=== PATIENT | female | born 1940 | race African-American/Black ===

== ENCOUNTER 2025-04-06 06:42 | Emergency (ER) | payer MEDICARE, MEDICAID, SELFPAY ==
--- NOTE | ~2025-04-06 | XR_ITS ---
EXAMINATION: XR chest 1V portable DATE: 04/06/2025 08:18 INDICATION: Altered level of consciousness TECHNIQUE: frontal view of the chest was obtained. COMPARISON: None FINDINGS: The lungs are clear with no focal airspace opacities, pulmonary edema, pleural effusion or pneumothor ax. The cardiomediastinal silhouette is normal. IMPRESSION: 1. No acute cardiopulmonary disease. Reviewed, dictated and finalized at location A.
[2025-04-06 06:42] VITALS: BP 132/79; PULSE 70; RESP 18; TEMP 36.7; O2SAT 100
[2025-04-06 07:01] VITALS: BP 130/85; PULSE 73; RESP 17; O2SAT 100
--- NOTE | 2025-04-06 07:22 | ED.GENADULT ---
HPI - General Adult General Chief complaint: Unspecified Stated complaint: aggressive with residential staff Time Seen by Provider: 04/06/25 07:06 History of Present Illness HPI narrative: Pt was apparently aggressive with residential staff and was wondering into other patient's rooms. Pt has dementia but is normally not having these behaviors so staff concerned about having UTI. Pt has no complaints. Related Data Home Medications ?Medication ?Instructions ?Recorded ?Confirmed ?Last Taken ?Type No Home Medications 08/05/24 09/30/24 Unknown History Allergies Allergy/AdvReac Type Severity Reaction Status Date / Time No Known Allergies Allergy Verified 09/30/24 20:49 Review of Systems Review of Systems: All systems reviewed & are unremarkable except as noted in HPI and below PMFSH Social History Social History Smoking status: Never smoker Exam Const: General: cooperative, healthy appearing, comfortable and no acute distress Nutritional Appearance: average body habitus Orientation/consciousness: oriented to person Limitations: altered mental status HENMT: Head: normal to inspection Mouth: Yes Normal oral and palatal mucosa present Throat: posterior oropharynx normal Neck: Neck: no lymphadenopathy Resp: Effort & Inspection: normal respiratory effort and able to speak in complete sentences Auscultation: clear to auscultation bilaterally Cardio: Rate: regular rate Rhythm: regular rhythm GI: Inspection: normal to inspection GI Palp: Yes abdominal tenderness Skin: General skin exam: normal color and no rashes or lesions noted Neuro: General: oriented to person Cranial nerves: Yes Bilaterally intact EOM present and Yes Nystagmus not present Speech: normal speech Motor exam (neuro): 5/5 motor strength present throughout Extrem: General: normal to inspection, full ROM and no clubbing, cyanosis or edema Psych: Speech and movement: Normal speech and movement present Affect: normal affect Attitude: cooperative Course Vital Signs Vital signs: Vital Signs Temperature 98.1 F 04/06/25 06:42 Pulse Rate 70 04/06/25 06:42 Respiratory Rate 18 04/06/25 06:42 Blood Pressure 132/79 04/06/25 06:42 Pulse Oximetry 100 04/06/25 06:42 Oxygen Delivery Room Air 04/06/25 06:42 Temperature 98.1 F 04/06/25 06:42 Pulse Rate 73 04/06/25 07:01 Respiratory Rate 17 04/06/25 07:01 Blood Pressure 130/85 04/06/25 07:01 Pulse Oximetry 100 04/06/25 07:01 Oxygen Delivery Room Air 04/06/25 06:42 Medical Decision Making MDM Narrative Medical decision making narrative: Pt here after being combative at local NH. Pt has hx of dementia but normally not agressive. will check labs and ua to rule out pneumonia or uti. Vital Signs Vital Signs: Vital Signs Temperature 98.1 F 04/06/25 06:42 Pulse Rate 70 04/06/25 06:42 Respiratory Rate 18 04/06/25 06:42 Blood Pressure 132/79 04/06/25 06:42 Pulse Oximetry 100 04/06/25 06:42 Oxygen Delivery Room Air 04/06/25 06:42 Temperature 98.1 F 04/06/25 06:42 Pulse Rate 73 04/06/25 07:01 Respiratory Rate 17 04/06/25 07:01 Blood Pressure 130/85 04/06/25 07:01 Pulse Oximetry 100 04/06/25 07:01 Oxygen Delivery Room Air 04/06/25 06:42 Lab Data 04/06/25 07:28 04/06/25 07:28 Labs: Lab Results 04/06/25 Range/Units 07:28 WBC 4.1 L (4.5-10.0) K/mm3 RBC 4.34 (4.2-5.4) M/mm3 Hgb 12.2 (12.0-15.0) g/dL Hct 40.3 (37.0-47.0) % MCV 92.9 (80-100) fl MCH 28.1 (26-34) pg MCHC 30.3 L (32-36) g/dl RDW 13.9 (11.5-14.5) % Plt Count 205 (150-375) k/mm3 MPV 10.7 H (7.4-10.4) fl Immature Gran % (Auto) 0.2 (0-0.5) % Neut % (Auto) 40.9 L (45.5-73.1) % Lymph % (Auto) 43.2 (18.3-44.2) % [place] % (Auto) 10.4 H (2.6-8.5) % Eos % (Auto) 4.3 (0-4.4) % Baso % (Auto) 1.0 (0.2-1.2) % Lymph # (Auto) 1.79 (0.9-3.2) K/mm3 [place] # (Auto) 0.4 (0.1-0.6) K/mm3 Eos # (Auto) 0.2 (0-0.3) K/mm3 Baso # (Auto) 0.0 (0.0-0.1) K/mm3 Abs Immat Gran (auto) 0.01 (0.00-0.031) K/mm3 Absolute Neuts (auto) 1.7 (1.3-6.7) K/mm3 Absolute Nucleated RBC 0.000 (0.0-0.012) K/mm3 Nucleated RBC % 0.0 (0.0-0.2) % Sodium 139 (137-145) mmol/L Potassium 3.1 L (3.4-5.0) mmol/L Chloride 99 (98-107) mmol/L Carbon Dioxide 34 H (22-30) mmol/L Anion Gap 6 (4-12) mmol/L BUN 35 H (7-17) mg/dL Creatinine 1.21 H (0.7-1.0) mg/dL Estim Creat Clear Calc Not Reportable Estimated GFR 42 L (59 - ) Glucose 94 (65-110) mg/dL Calcium 10.5 H (8.4-10.2) mg/dL Total Bilirubin 0.6 (0.2-1.3) mg/dL AST 29 (14-36) U/L ALT 14 (6-35) U/L Alkaline Phosphatase 54 (38-126) U/L Total Protein 7.2 (6.3-8.2) g/dL Albumin 4.4 (3.5-5.1) g/dL Urine Color Yellow (Yellow) Urine Appearance Clear (Clear) Urine pH 6.0 (5.0-9.0) Ur Specific [place] 1.028 (1.001-1.035) Urine Protein 1+ H (Negative) mg/dL Urine Glucose (UA) Negative (Negative) mg/dL Urine Ketones Trace H (Negative) mg/dL Ur Blood (Man) Negative (Negative) Urine Nitrate Negative (Negative) Urine Bilirubin Negative (Negative) Urine Urobilinogen 1.0 (<2.0) mg/dL Add Ur Microanalysis Reviewed Leukocyte Esterase Rfl Negative (Negative) BONILLA/UL Urine RBC 0-2 (0-2) /hpf Urine WBC 0-5 (0-3) /hpf Ur Squamous Epith Cells Occasional (Few) /hpf Urine Bacteria None seen /hpf Urine Casts 0-2 Discharge Plan Discharge Clinical Impression: Altered behavior in Alzheimer's disease, Combative behavior Patient Disposition: NH Senior Care/Asst Living Condition: Stable Instructions: Antibiotic Form, Dementia (ED) Patient Language: Romanian Prescriptions: No Action No Home Medications Follow-up/Referrals: UNKNOWN,DOCTOR [Primary Care Provider] -
--- NOTE | 2025-04-06 07:27 | PC.NURSE ---
Breakfast tray and coffee ordered for pt.
[2025-04-06 07:34] LABS: Eosinophils Absolute Auto 0.2 K/mm3 (0-0.3); Eosinophils Percent Auto 4.3 % (0-4.4); Hematocrit 40.3 % (37.0-47.0); Hemoglobin 12.2 g/dL (12.0-15.0); Immature Granulocyte Absolute 0.01 K/mm3 (0.00-0.031); Immature Granulocyte Percent A 0.2 % (0-0.5); Lymphocytes Absolute Auto 1.79 K/mm3 (0.9-3.2); Lymphocytes Percent Auto 43.2 % (18.3-44.2); Mean Corpuscular HGB Conc 30.3 g/dl (32-36); Mean Corpuscular Hemoglobin 28.1 pg (26-34); Mean Corpuscular Volume 92.9 fl (80-100); Mean Platelet Volume 10.7 fl (7.4-10.4); Monocytes Absolute Auto 0.4 K/mm3 (0.1-0.6); Monocytes Percent Auto 10.4 % (2.6-8.5); Neutrophils Absolute Auto 1.7 K/mm3 (1.3-6.7); Neutrophils Percent Auto 40.9 % (45.5-73.1); Platelet Count Result 205 k/mm3 (150-375); Red Blood Count 4.34 M/mm3 (4.2-5.4); Red Cell Distribution Width 13.9 % (11.5-14.5); White Blood Count 4.1 K/mm3 (4.5-10.0)
[2025-04-06 07:42] LABS: Add Urine Microscopic? YES; Appearance Urine Clear (Clear); Bacteria Urine None Seen /hpf; Bilirubin Urine Negative (Negative); Blood Urine Negative (Negative); Color Urine Yellow (Yellow); Glucose Urine UA Negative (Negative); Ketones Urine Trace mg/dL (Negative); Leukocyte Esterase Ur Negative LEU/UL (Negative); Need Manual Microscopic Reviewed; Nitrate Urine Negative (Negative); Non Pathogenic Casts 0-2; Protein Urine 1+ mg/dL (Negative); RBC Urine 0-2 /hpf (0-2); Specific Grav Ur 1.028 (1.001-1.035); Squamous Epithelial Cell Urine Occasional /hpf (Few); WBC Urine 0-5 /hpf (0-3)
[2025-04-06 07:44] LABS: Alanine Aminotransferase 14 U/L (6-35); Albumin Level 4.4 g/dL (3.5-5.1); Alkaline Phosphatase 54 U/L (38-126); Anion Gap 6 mmol/L (4-12); Aspartate Amino Transferase 29 U/L (14-36); Bilirubin,Total 0.6 mg/dL (0.2-1.3); Blood Urea Nitrogen 35 mg/dL (7-17); Calcium 10.5 mg/dL (8.4-10.2); Carbon Dioxide 34 mmol/L (22-30); Chloride 99 mmol/L (98-107); Estimated Glomerular Filt Rate 42; Glucose 94 mg/dL (65-110); Potassium 3.1 mmol/L (3.4-5.0); Sodium 139 mmol/L (137-145); Total Protein 7.2 g/dL (6.3-8.2)
[2025-04-06] MEDS: POTASSIUM CHLORIDE 20 MEQ PACKET (FOR LIQUID) 40 MEQ PO (07:53)
[2025-04-09 08:19] LABS: Glucose Point of Care 77 mg/dl (65-105)
== END 2025-04-06 09:40 ==
PROVIDERS: Emergency Provider Emergency Medicine
DX: G30.9 Alzheimer's disease, unspecified (principal); F02.811 Dementia in other diseases classified elsewhere, unspecified severity, with agitation
CPT/HCPCS: 36415; 71045; 80053; 81001; 82948; 85025; 99283; A9270

== ENCOUNTER 2025-06-06 11:39 | Emergency (ER) | payer MEDICARE, MEDICAID, SELFPAY ==
--- NOTE | ~2025-06-06 | CT_ITS ---
EXAMINATION: CT brain wo con DATE: 06/06/2025 13:22 INDICATION: Altered mental status with increased aggression TECHNIQUE: Computed tomography (CT) of the head was performed without intravenous contrast. Sagittal and coronal reconstructions were performed. The mA was adjusted according to patient size. Iterative reconstruction technique was employed. The dose-length product was 756.67 mGy-cm. COMPARISON: None FINDINGS: No acute intracranial hemorrhage, acute infarction or abnormal extra axial fluid collection. There is mild scattered white matter hypoattenuation consistent with chronic small vessel ischemic disease. S ymmetric prominence of the sulci and ventricles consistent with moderate age-appropriate diffuse cer ebral volume loss. Ventricles are normal and symmetric. No mass/mass effect. Changes of bilateral int raocular lens replacement. The orbits, paranasal sinuses and mastoid air cells are normal. Intracrani al calcified cerebral atherosclerosis is noted. IMPRESSION: 1. Normal aging brain. No acute intracranial process. Reviewed, dictated and finalized at location A.
[2025-06-06 11:42] VITALS: BP 125/69; PULSE 77; RESP 21; TEMP 36.7; O2SAT 100
--- NOTE | 2025-06-06 12:02 | ED.GENADULT ---
HPI - General Adult General Chief complaint: Urogenital-Female Stated complaint: ams Time Seen by Provider: 06/06/25 11:44 History of Present Illness HPI narrative: 84-year-old female that is A&O x1 at baseline presents to the emergency department for evaluation for increased agitation and aggression. At time of evaluation patient is pleasant and well-appearing and is and no distress. Patient states she does have some chronic left shoulder pain. States that she has had some burning with urination. Patient denies any other complaints. Related Data Allergies Allergy/AdvReac Type Severity Reaction Status Date / Time No Known Allergies Allergy Verified 09/30/24 20:49 Review of Systems Review of Systems: All systems reviewed & are unremarkable except as noted in HPI and below PMFSH Social History Social History Smoking status: Never smoker Exam Narrative: APPEARANCE: Well appearing, no pain, no distress, well-nourished. HEAD: normocephalic, atraumatic. EYES: PERRLA/EOMI, conjunctivae clear. NOSE: Normal no drainage EARS:TMS clear with good light reflex. THROAT: Pharynx clear, no exudate. NECK: Supple. No adenopathy, no masses. RESPIRATORY: Airway patent, respirations nonlabored. Clear to auscultation bilaterally, no rales, rhonchi, wheezing. CARDIOVASCULAR: Regular rate and rhythm without murmurs rubs or gallops. ABDOMINAL: Soft, nontender, nondistended, normal bowel sounds MUSCULOSKELETAL: Moves all extremities. Strength/ROM intact, No edema, No calf tenderness. NEURO: Alert. Cranial nerves II through XII intact. Good gait. Good coordination SKIN: Warm, dry. Normal Color Course Vital Signs Vital signs: Vital Signs Temperature 98.1 F 06/06/25 11:42 Pulse Rate 77 06/06/25 11:42 Respiratory Rate 21 H 06/06/25 11:42 Blood Pressure 125/69 06/06/25 11:42 Pulse Oximetry 100 06/06/25 11:42 Oxygen Delivery Room Air 06/06/25 11:42 Temperature 98.1 F 06/06/25 11:42 Pulse Rate 77 06/06/25 11:42 Respiratory Rate 21 H 06/06/25 11:42 Blood Pressure 125/69 06/06/25 11:42 Pulse Oximetry 100 06/06/25 11:42 Oxygen Delivery Room Air 06/06/25 11:42 Medical Decision Making MDM Narrative Medical decision making narrative: 84-year-old female presented to the emergency department for evaluation for increased aggression. Patient is at her normal baseline and has displayed no aggression or agitation in the emergency department. Patient is currently afebrile with no leukocytosis hemoglobin of 10.5. Patient's INR is 1.0. Patient has no acute abnormalities on his CMP UA was concerning for urinary tract infection. Patient was started on antibiotics in the emergency department, IV Rocephin. Head CT was negative for acute intracranial abnormality. Patient will be discharged back to her care facility on Keflex. Differential Diagnosis Differential Diagnosis: Subdural hematoma, subarachnoid hemorrhage, cervical spine fracture, UTI, pyelonephritis Vital Signs Vital Signs: Vital Signs Temperature 98.1 F 06/06/25 11:42 Pulse Rate 77 06/06/25 11:42 Respiratory Rate 21 H 06/06/25 11:42 Blood Pressure 125/69 06/06/25 11:42 Pulse Oximetry 100 06/06/25 11:42 Oxygen Delivery Room Air 06/06/25 11:42 Temperature 98.1 F 06/06/25 11:42 Pulse Rate 77 06/06/25 11:42 Respiratory Rate 21 H 06/06/25 11:42 Blood Pressure 125/69 06/06/25 11:42 Pulse Oximetry 100 06/06/25 11:42 Oxygen Delivery Room Air 06/06/25 11:42 Lab Data Lab results reviewed: Yes I reviewed the patient's lab results. 06/06/25 12:45 06/06/25 12:45 Labs: Lab Results 06/06/25 06/06/25 Range/Units 12:36 12:45 WBC 3.4 L (4.5-10.0) K/mm3 RBC 3.69 L (4.2-5.4) M/mm3 Hgb 10.5 L (12.0-15.0) g/dL Hct 34.6 L (37.0-47.0) % MCV 93.8 (80-100) fl MCH 28.5 (26-34) pg MCHC 30.3 L (32-36) g/dl RDW 14.6 H (11.5-14.5) % Plt Count 247 (150-375) k/mm3 MPV 10.1 (7.4-10.4) fl Immature Gran % (Auto) 0.3 (0-0.5) % Neut % (Auto) 54.8 (45.5-73.1) % Lymph % (Auto) 25.7 (18.3-44.2) % [place] % (Auto) 11.8 H (2.6-8.5) % Eos % (Auto) 6.2 H (0-4.4) % Baso % (Auto) 1.2 (0.2-1.2) % Lymph # (Auto) 0.87 L (0.9-3.2) K/mm3 [place] # (Auto) 0.4 (0.1-0.6) K/mm3 Eos # (Auto) 0.2 (0-0.3) K/mm3 Baso # (Auto) 0.0 (0.0-0.1) K/mm3 Abs Immat Gran (auto) 0.01 (0.00-0.031) K/mm3 Absolute Neuts (auto) 1.9 (1.3-6.7) K/mm3 Absolute Nucleated RBC 0.000 (0.0-0.012) K/mm3 Nucleated RBC % 0.0 (0.0-0.2) % PT 14.0 (11.1-14.7) Seconds INR 1.1 APTT 34.8 (22.3-36.8) Seconds Sodium 141 (137-145) mmol/L Potassium 3.8 (3.4-5.0) mmol/L Chloride 104 (98-107) mmol/L Carbon Dioxide 31 H (22-30) mmol/L Anion Gap 6 (4-12) mmol/L BUN 33 H (7-17) mg/dL Creatinine 1.06 H (0.7-1.0) mg/dL Estim Creat Clear Calc Not Reportable Estimated GFR 49 L (59 - ) Glucose 93 (65-110) mg/dL Lactic Acid 1.5 (0.7-2.0) mmol/L Calcium 10.1 (8.4-10.2) mg/dL Total Bilirubin 0.4 (0.2-1.3) mg/dL AST 22 (14-36) U/L ALT 12 (6-35) U/L Alkaline Phosphatase 55 (38-126) U/L Total Protein 6.6 (6.3-8.2) g/dL Albumin 3.9 (3.5-5.1) g/dL Urine Color Dark yellow (Yellow) Urine Appearance Clear (Clear) Urine pH 5.0 (5.0-9.0) Ur Specific [place] 1.026 (1.001-1.035) Urine Protein 1+ H (Negative) mg/dL Urine Glucose (UA) Negative (Negative) mg/dL Urine Ketones Trace H (Negative) mg/dL Ur Blood (Man) Negative (Negative) Urine Nitrate Negative (Negative) Urine Bilirubin Negative (Negative) Urine Urobilinogen 1.0 (<2.0) mg/dL Leukocyte Esterase Rfl 1+ H (Negative) BONILLA/UL Urine RBC 0-2 (0-2) /hpf Urine WBC 6-10 H (0-3) /hpf Ur Squamous Epith Cells None seen (Few) /hpf Urine Bacteria None seen /hpf Urine Casts 0-2 Imaging Data Radiologist's impression: Impressions Head CT 06/06/25 13:31 IMPRESSION: 1. Normal aging brain. No acute intracranial process. Discharge Plan Discharge Clinical Impression: Urinary tract infection Patient Disposition: [facility]/As[facility] Living Condition: Stable Instructions: Antibiotic Form, Urinary Tract Infection in Women (ED) Additional Instructions: Antibiotic as directed until completed. Have close follow-up with your primary care physician. Patient Language: Kyrgyz Prescriptions: New cephalexin 500 mg capsule 500 mg PO Q8H 7 Days Qty: 21 0RF Follow-up/Referrals: UNKNOWN,DOCTOR [Primary Care Provider] -
[2025-06-06 12:48] LABS: Add Urine Microscopic? YES; Appearance Urine Clear (Clear); Glucose Urine UA Negative (Negative); Leukocyte Esterase Ur 1+ LEU/UL (Negative); Nitrate Urine Negative (Negative); Non Pathogenic Casts 0-2; Specific Grav Ur 1.026 (1.001-1.035)
[2025-06-06 12:51] LABS: Hematocrit 34.6 % (37.0-47.0); Hemoglobin 10.5 g/dL (12.0-15.0); Immature Granulocyte Percent A 0.3 % (0-0.5); Lymphocytes Absolute Auto 0.87 K/mm3 (0.9-3.2); Mean Corpuscular HGB Conc 30.3 g/dl (32-36); Mean Corpuscular Hemoglobin 28.5 pg (26-34); Mean Corpuscular Volume 93.8 fl (80-100); Nucleated Red Blood Cells Absolute Auto 0.000 K/mm3 (0.0-0.012); Nucleated Red Blood Cells Perc 0.0 % (0.0-0.2); Platelet Count Result 247 k/mm3 (150-375); Red Blood Count 3.69 M/mm3 (4.2-5.4); White Blood Count 3.4 K/mm3 (4.5-10.0)
[2025-06-06 13:02] LABS: INR 1.1; Prothrombin Time 14.0 Seconds (11.1-14.7)
[2025-06-06 13:03] LABS: Partial Thromboplastin Time 34.8 Seconds (22.3-36.8)
[2025-06-06 13:07] LABS: Alanine Aminotransferase 12 U/L (6-35); Albumin Level 3.9 g/dL (3.5-5.1); Alkaline Phosphatase 55 U/L (38-126); Anion Gap 6 mmol/L (4-12); Aspartate Amino Transferase 22 U/L (14-36); Bilirubin,Total 0.4 mg/dL (0.2-1.3); Blood Urea Nitrogen 33 mg/dL (7-17); Calcium 10.1 mg/dL (8.4-10.2); Carbon Dioxide 31 mmol/L (22-30); Chloride 104 mmol/L (98-107); Estimated Glomerular Filt Rate 49; Glucose 93 mg/dL (65-110); Potassium 3.8 mmol/L (3.4-5.0); Sodium 141 mmol/L (137-145); Total Protein 6.6 g/dL (6.3-8.2)
[2025-06-06] MEDS: cefTRIAXone 1 GM in SODIUM CHLORIDE 0.9% IV 50 ML 100 ML IVPB (14:03)
== END 2025-06-06 15:08 ==
PROVIDERS: Emergency Provider Emergency Medicine
DX: N39.0 Urinary tract infection, site not specified (principal); R45.1 Restlessness and agitation; G89.29 Other chronic pain
CPT/HCPCS: 36415; 70450; 80053; 81001; 83605; 85025; 85610; 85730; 87086; 96365; 99284; J0696

== ENCOUNTER 2025-06-10 10:29 | Emergency (ER) | payer MEDICARE, MEDICAID, SELFPAY ==
[2025-06-10] VITALS (16 sets, daily range): BP systolic 157–167; BP diastolic 73–86; PULSE 68–91; RESP 13–35; TEMP 36.4; O2SAT 99–100
--- NOTE | ~2025-06-10 | XR_ITS ---
CHEST RADIOGRAPH CLINICAL HISTORY: Fall . COMPARISON: 04/06/2025 TECHNIQUE: Single portable view of the chest. FINDINGS The cardiomediastinal silhouette is unremarkable. The lungs are clear. IMPRESSION: No focal infiltrate or effusion. Reviewed, dictated and finalized at location A.
--- NOTE | ~2025-06-10 | CT_ITS ---
EXAMINATION: CT cervical spine wo con DATE: 06/10/2025 11:49 INDICATION: Fall. Dementia. TECHNIQUE: Computed tomography (CT) of the cervical spine was performed without intravenous contrast. Automated exposure control and iterative reconstruction technique were employed. The dose-length pro duct was 131.02 mGy-cm. COMPARISON: None FINDINGS: 15 degrees cervicothoracic dextrocurvature. Mild reversal of the normal lordosis in the upper cervica l spine. 2 mm retrolisthesis C5 on C6. Chronic mild anterior wedging at C5. No acute fractures. Moder ate to severe disc height loss at C5-C6, moderate disc height loss at C3-C4 and mild disc height loss at C2-C3 and C4-C5. Disc bulge at C4-C5 and C5-C6 and posterior disc ossified complexes at C3-C4 con tributing to multilevel mild central canal stenosis at these levels. Severe bilateral uncovertebral o steoarthritis at C5-C6. Moderate uncovertebral osteoarthritis on the left at C4-C5 and bilaterally at C3-C4. Mild osteoarthritis of the remaining cervical uncovertebral joints. There is severe facet ost eoarthritis on the right at C2-C3, C3-C4 and T3-T4 and on the left at C3-C4, C4-C5 and C6-C7. Moderat e facet osteoarthritis at the majority the remaining cervical and visualized upper thoracic facet contreras nts. This continues to moderate neural foraminal stenosis bilaterally at C3-C4 through C5-C6. Mild ne ural from stenosis at the remaining cervical neural foramina. Atherosclerotic calcific lesions at the bilateral carotid bulbs. Multinodular goiter. Cervical soft tissues are otherwise unremarkable. For millimeter right apical nodule. IMPRESSION: 1. 15 degrees cervicothoracic dextrocurvature with moderate spondylosis. No acute osseous abnormality . 2. Indeterminate 4 mm right apical nodule. If the patient is low risk for lung cancer, no follow-up i s needed. If the patient is high risk (i.e., history of smoking or asbestos or significant radiation exposure), optional follow-up chest CT could be considered at 12 months. 3. Multinodular goiter. Reviewed, dictated and finalized at location A. IMPRESSION: 1. 15 degrees cervicothoracic dextrocurvature with moderate spondylosis. No acu te osseous abnormality. 2. Indeterminate 4 mm right apical nodule. If the patient is low risk for lung cancer, no follow-up is needed. If the patient is high risk (i.e., history of s moking or asbestos or significant radiation exposure), optional follow-up chest CT could be considered at 12 months. 3. Multinodular goiter.
--- NOTE | ~2025-06-10 | XR_ITS ---
HISTORY: Hip pain, FALL COMPARISON: None TECHNIQUE: Single frontal view of the pelvis FINDINGS: Age-appropriate demineralization is noted. Significant degenerative disease within the visualized portion of the lumbar spine. Superior lateral joint space narrowing and sclerosis is identified within the bilateral femoral aceta bular joint spaces, right greater than left. Irregular joint space narrowing and sclerosis is present within the pubic symphysis. No acute fracture or dislocation is appreciated. Vascular calcifications are noted. IMPRESSION: Degenerative disease, without acute fracture or dislocation, as detailed above. Reviewed, dictated and finalized at location A.
--- NOTE | ~2025-06-10 | CT_ITS ---
EXAMINATION: CT brain wo con DATE: 06/10/2025 11:49 INDICATION: Fall. TECHNIQUE: Computed tomography (CT) of the head was performed without intravenous contrast. The dose- length product was 605.33 mGy-cm. COMPARISON: None FINDINGS: No acute cranial hemorrhage. No mass effect. No midline shift. Cerebral atrophy appropriate for the patient's age. No skull fracture. Visualized paranasal sinuses and mastoid air cells are clear. IMPRESSION: 1. No acute intracranial hemorrhage. No mass effect. Reviewed, dictated and finalized at location A.
--- NOTE | 2025-06-10 13:01 | ED.GENADULT ---
HPI - General Adult General Chief complaint: Fall Stated complaint: glf Time Seen by Provider: 06/10/25 10:45 History of Present Illness HPI narrative: 84-year-old female with severe dementia presenting after an unwitnessed fall. The patient has severe dementia and can provide no useful information to guide a workup. She is being treated for UTI. Related Data Allergies Allergy/AdvReac Type Severity Reaction Status Date / Time No Known Allergies Allergy Verified 06/10/25 10:40 [facility] Social History Social History Smoking status: Never smoker Exam Narrative: APPEARANCE: No apparent distress. A&O x1 Head: atraumatic. EYES: EOMI, NOSE: Atraumatic NECK: Trachea midline RESPIRATORY: No increased rate of breathing clear to auscultation CARDIOVASCULAR: RRR,+2 pulses in all extremities ABDOMINAL: Non-distended soft nontender MUSCULOSKELETAl: head to toe trauma exam was performed the patient has some mild pain in the bilateral hips. Without deformity, shortening or rotation. No other injuries noted NEURO: Alert. Moving 4/4 extremities SKIN:: Warm, dry. Normal color PSYCHIATRIC: Normal affect Course Vital Signs Vital signs: Vital Signs Temperature 97.6 F 06/10/25 10:30 Pulse Rate 73 06/10/25 10:30 Respiratory Rate 14 06/10/25 10:30 Blood Pressure 158/86 H 06/10/25 10:30 Pulse Oximetry 100 06/10/25 10:30 Oxygen Delivery Room Air 06/10/25 10:30 Temperature 97.6 F 06/10/25 10:30 Pulse Rate 73 06/10/25 10:30 Respiratory Rate 14 06/10/25 10:30 Blood Pressure 158/86 H 06/10/25 10:30 Pulse Oximetry 100 06/10/25 10:30 Oxygen Delivery Room Air 06/10/25 10:30 Medical Decision Making [facility] Narrative Medical decision making narrative: -Course: 84-year-old female presenting after unwitnessed fall. Screening imaging of the head neck chest and pelvis were negative. Laboratory studies within expected limits. Patient is already undergoing treatment for a urinary tract infection and should continue her Keflex. Patient discharged back to longterm. Given return precautions. -DDX includes but is not limited to: Hip fracture, intracranial hemorrhage, UTI/sepsis Vital Signs Vital Signs: Vital Signs Temperature 97.6 F 06/10/25 10:30 Pulse Rate 73 06/10/25 10:30 Respiratory Rate 14 06/10/25 10:30 Blood Pressure 158/86 H 06/10/25 10:30 Pulse Oximetry 100 06/10/25 10:30 Oxygen Delivery Room Air 06/10/25 10:30 Temperature 97.6 F 06/10/25 10:30 Pulse Rate 73 06/10/25 10:30 Respiratory Rate 14 06/10/25 10:30 Blood Pressure 158/86 H 06/10/25 10:30 Pulse Oximetry 100 06/10/25 10:30 Oxygen Delivery Room Air 06/10/25 10:30 Discharge Plan Discharge Clinical Impression: Fall Patient Disposition: Home Condition: Stable Instructions: Antibiotic Form, Fall Prevention for Older Adults (ED) Additional Instructions: Danielle was seen after a fall. Her workup did not show any acute traumatic injuries. She should continue to take the Keflex as instructed. She can return shows any new or worsening symptoms. Patient Language: Greenlandic Prescriptions: No Action cephalexin 500 mg capsule 500 mg PO Q8H 7 Days Qty: 21 0RF Follow-up/Referrals: UNKNOWN,DOCTOR [Primary Care Provider] -
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
[2025-06-10 13:17] LABS: Hematocrit 33.6 % (37.0-47.0); Hemoglobin 10.4 g/dL (12.0-15.0); Immature Granulocyte Percent A 0.5 % (0-0.5); Lymphocytes Absolute Auto 0.86 K/mm3 (0.9-3.2); Mean Corpuscular HGB Conc 31.0 g/dl (32-36); Mean Corpuscular Hemoglobin 28.4 pg (26-34); Mean Corpuscular Volume 91.8 fl (80-100); Nucleated Red Blood Cells Absolute Auto 0.000 K/mm3 (0.0-0.012); Nucleated Red Blood Cells Perc 0.0 % (0.0-0.2); Platelet Count Result 251 k/mm3 (150-375); Red Blood Count 3.66 M/mm3 (4.2-5.4); White Blood Count 5.7 K/mm3 (4.5-10.0)
[2025-06-10 13:37] LABS: Alanine Aminotransferase 14 U/L (6-35); Albumin Level 4.3 g/dL (3.5-5.1); Alkaline Phosphatase 68 U/L (38-126); Anion Gap 5 mmol/L (4-12); Aspartate Amino Transferase 26 U/L (14-36); Bilirubin,Total 0.9 mg/dL (0.2-1.3); Blood Urea Nitrogen 28 mg/dL (7-17); Calcium 10.5 mg/dL (8.4-10.2); Carbon Dioxide 31 mmol/L (22-30); Chloride 100 mmol/L (98-107); Estimated CRCL calculation 36 ml/min; Estimated Glomerular Filt Rate > 60; Glucose 98 mg/dL (65-110); Potassium 3.2 mmol/L (3.4-5.0); Sodium 136 mmol/L (137-145); Total Protein 7.0 g/dL (6.3-8.2)
--- NOTE | 2025-06-10 14:19 | PC.NURSE ---
pt refused to sip her potassium. potassium was not given
== END 2025-06-10 14:34 ==
PROVIDERS: Emergency Provider Emergency Medicine
DX: Z04.3 Encounter for examination and observation following other accident (principal); N39.0 Urinary tract infection, site not specified; F03.C0 Unspecified dementia, severe, without behavioral disturbance, psychotic disturbance, mood disturbance, and anxiety; W19.XXXA Unspecified fall, initial encounter
CPT/HCPCS: 36415; 70450; 71045; 72125; 72170; 80053; 85025; 99284

== ENCOUNTER 2025-06-17 02:17 | Emergency (ER) | payer MEDICARE, MEDICAID, SELFPAY ==
--- NOTE | ~2025-06-17 | XR_ITS ---
AP view of the pelvis and AP and lateral views of the right hip Clinical history: Pain Findings: No acute fracture or dislocation is seen. Osseous alignment is anatomic. Bilateral hip and SI joint spaces are preserved. Soft tissues are unremarkable. Impression: No significant abnormality is seen. Reviewed, dictated and finalized at [facility]. Impression: No significant abnormality is seen.
--- NOTE | ~2025-06-17 | XR_ITS ---
AP and lateral views of the right femur Clinical History: Pain Findings: No acute fracture or dislocation is seen. Osseous alignment is anatomic. Mild degenerative changes are present at the right knee. Soft tissues are unremarkable. Impression: No acute fracture or dislocation. Mild degenerative changes of the right knee. Reviewed, dictated and finalized at [facility]. Impression: No acute fracture or dislocation. Mild degenerative changes of the right knee.
--- NOTE | ~2025-06-17 | CT_ITS ---
Noncontrast CT scan of the cervical spine Technique: Multiple contiguous axial [address] images of the cervical spine were obtained and reconstructed in 2D sagittal and coronal planes on the acquisition scanner. Dose reduction technique was used on this scan by utilizing automated exposure control, adjustment of the mA and/or kV according to patient size. The dose-length product (DLP) was 169.45 mGy-cm. Clinical History: Pain Findings: No fractures or dislocations. There is reversal normal cervical lordosis. There is advanced degenerative disc narrowing at C5-C6. There is moderate degenerative disc narrowing at C3-C4. There is extensive facet arthropathy throughout the cervical spine. There is bilateral neural foraminal narrowing at C5-C6. No prevertebral soft tissue swelling. Impression: No fracture or subluxation of the cervical spine. Reviewed, dictated and finalized at [facility]. Impression: No fracture or subluxation of the cervical spine.
--- NOTE | ~2025-06-17 | CT_ITS ---
CT head without contrast Indication: Status post fall COMPARISON: 06/10/2025 Technique: Serial scans were obtained through the brain without the administration of contrast. Dose reduction technique was used on this scan by utilizing automated exposure control and iterative reconstruction technique. The dose-length product (DLP) was 1059.33 mGy-cm. Findings: There is no evidence of intracranial hemorrhage, mass lesion, or acute infarct. The ventricles and subarachnoid spaces are dilated, consistent with mild to moderate atrophy. Low attenuation regions are seen within the periventricular white matter bilaterally, likely representing changes from chronic microvascular ischemic disease. There is no evidence of edema, mass effect or midline shift. The visualized paranasal sinuses and mastoid air cells are clear. Impression: No intracranial hemorrhage, mass, or acute infarct. Atrophy and chronic white matter changes, as above. Reviewed, dictated and finalized at location . Impression: No intracranial hemorrhage, mass, or acute infarct. Atrophy and chronic white matter changes, as above.
[2025-06-17 02:19] VITALS: BP 135/81; PULSE 74; RESP 16; TEMP 36.3; O2SAT 99
--- NOTE | 2025-06-17 02:44 | ED_ITS ---
HPI - Fall General Chief Complaint: Fall Stated Complaint: fall Time Seen by Provider: 06/17/25 02:21 History of Present Illness HPI Narrative: Patient is an 84-year-old female who presents to the emergency department this evening from her nursing homes status post an unwitnessed ground level fall. Patient does have a history of severe dementia and secondary to this the remainder of the history of present illness and review system is limited. No evidence of trauma or deformity noted. Related Data Allergies Allergy/AdvReac Type Severity Reaction Status Date / Time No Known Allergies Allergy Verified 06/17/25 02:37 Review of Systems Review of Systems: Unable to obtain a full review of systems secondary to patient's dementia. [facility] Social History Social History Smoking status: Never smoker Exam Narrative: General: Alert, awake, afebrile, in no acute distress. HEENT: PERRL, no rhinorrhea, no post nasal drip, oropharynx clear. Neck: Trachea midline, no JVD, no lymphadenopathy. Cardiovascular: Regular rate and rhythm, no murmurs, rubs or gallops, no peripheral edema. Respiratory: Clear to auscultation bilaterally, no tachypnea, no wheezing, no rhonchi, no rubs, no respiratory distress. Abdomen: Soft, nontender, nondistended, no rebound, no guarding, no peritoneal signs. Musculoskeletal: No joint swelling or deformity, normal muscle tone, intact bilateral hip flexions any extensions. Skin: No rashes or petechia, no signs of infection. Neurological: Alert and oriented to person which is baseline. Severe dementia. Follows some commands. Moving all extremities spontaneously. No focal deficits, speech is clear and fluent. Course Vital Signs Vital signs: Vital Signs Temperature 97.3 F L 06/17/25 02:19 Pulse Rate 74 06/17/25 02:19 Respiratory Rate 16 06/17/25 02:19 Blood Pressure 135/81 06/17/25 02:19 Pulse Oximetry 99 06/17/25 02:19 Oxygen Delivery Room Air 06/17/25 02:19 Temperature 97.3 F L 06/17/25 02:19 Pulse Rate 74 06/17/25 02:19 Respiratory Rate 16 06/17/25 02:19 Blood Pressure 135/81 06/17/25 02:19 Pulse Oximetry 99 06/17/25 02:19 Oxygen Delivery Room Air 06/17/25 02:19 MDM - Fall MDM Narrative Medical decision making narrative: The patient was evaluated by myself in the emergency department. History is obtained from EMS report. External medical records were reviewed at this time. Imaging studies obtained included CT brain C-spine without IV contrast and x- rays of the pelvis with right hip and right femur which was independently interpreted by me revealing no acute process, which is pending final radiology interpretation. Differential diagnosis considerations include fracture, musculoskeletal strain. Comorbidities impacting this visit include history of dementia. I have evaluated and discussed social determinants of health with the patient that could potentially impact subsequent diagnosis and treatment plans. On repeat assessment of the patient, reevaluation revealed that the patient is doing well and is in no acute distress. Patient symptoms have remained stable since she arrived to our emergency department. Repeat vital signs were all reviewed and noted to be stable. Differential diagnosis and treatment plan were discussed with the patient at bedside. Patient agrees with discussion and after shared medical decision making agrees with discharge. All questions were answered to the patient's satisfaction. Patient will follow up with her PCP in 3-5 days. Patient was provided with strict return precautions and instructed to return to the emergency department if any new or worsening symptoms develop. The patient was discharged in stable condition. Discharge Plan Discharge Clinical Impression: Fall from ground level Patient Disposition: SNF Condition: Stable Instructions: Fall Prevention for Older Adults (ED) Additional Instructions: Please follow-up with your family doctor within the next 3-5 days. One hundred if any new or worsening symptoms develop. Patient Language: Urdu Prescriptions: No Action cephalexin 500 mg capsule 500 mg PO Q8H 7 Days Qty: 21 0RF Follow-up/Referrals: UNKNOWN,DOCTOR [Primary Care Provider] Time of Disposition: 05:08
[2025-06-17 07:49] VITALS: BP 153/86; PULSE 76; RESP 15; O2SAT 100
== END 2025-06-17 09:03 ==
PROVIDERS: Emergency Provider Emergency Medicine
DX: Z04.3 Encounter for examination and observation following other accident (principal); F03.C0 Unspecified dementia, severe, without behavioral disturbance, psychotic disturbance, mood disturbance, and anxiety; W18.30XA Fall on same level, unspecified, initial encounter
CPT/HCPCS: 70450; 72125; 73502; 73552; 99284